=== PATIENT | male | born 1950 | race Caucasian/White ===

== ENCOUNTER 2017-07-31 06:59 | Day surgery (SDC) | payer MEDICARE, MEDICAID ==
[2017-07-31] MEDS ORDERED: FENTANYL PF 100MCG/2ML VIAL IV ONE (07:00)
[2017-07-31] MEDS ORDERED: DEXAMETHASONE PRESERVATIVE FREE 10MG/ML VIAL IV ONE (07:00)
[2017-07-31] MEDS ORDERED: MIDAZOLAM HCL 2MG/2ML VIAL IV ONE (07:00)
[2017-07-31] MEDS ORDERED: PROPOFOL 10 MG/ML VIAL IV ONE (07:00)
[2017-07-31] MEDS ORDERED: LIDOCAINE 2% MDV (20MG/ML) 20ML VIAL IV ONE (07:00)
[2017-07-31] MEDS ORDERED: BUPIVACAINE 0.75% W/EPI MPF 30ML VIAL IVP ONE (07:00)
[2017-07-31] MEDS ORDERED: LIDOCAINE 1% W/EPI 1:200,000 MPF 30ML SQ ONE (07:00)
--- NOTE | 2017-07-31 19:01 | Operative Note - [place] ---
DATE OF SURGERY: 07/31/17 PREOPERATIVE DIAGNOSIS: CERVICAL SPONDYLOSIS WITHOUT MYELOPATHY, ICD-10 CODE = M47.812. OPERATION: RADIOFREQUENCY RHIZOTOMY BILATERAL CERVICAL FACETS 2-3, 3-4, AND 4-5. SURGEON: VALENTIN BRITO D.O. ANESTHESIA: LOCAL SEDATION. ANESTHESIA PROVIDER: CHASE RAMIREZ CRNA. INDICATION: This patient presents with pain, which is head and neck. Diagnostics show significant endplate spurring and osteophytic formation, cervical spine. Facet series 75-90% pain control. Due to the failure of therapy and success of the facet series, the patient presents today for rhizotomy for more long-term relief. PROCEDURE: Intravenous line, vital sign monitoring, IV sedation, prepped, draped, sterile technique. Patient position prone. Sterile prep. Sterile technique. Under imaging, cervical facets at 2-3, 3-4, and 4-5 were identified and marked bilaterally. Skin infiltrated. A 22-gauge rhizotomy cannula positioned. Stimulation trials conducted. Rhizotomy burn performed. Local with anti-inflammatory into the sites. Topical antibiotics. Sterile dressing applied. We will monitor and evaluate. cc: Celine Pimentel Dr. JOB NUMBER: [id number] [facility]
== END 2017-07-31 09:15 | disposition home or self-care (01) ==
LOC: SUR 06:59
PROVIDERS: ATTEND Pain Medicine Interventional Pain Medicine
DX: M47.812 Spondylosis without myelopathy or radiculopathy, cervical region (principal)
CPT/HCPCS: J3490

== ENCOUNTER 2017-11-08 08:11 | Day surgery (SDC) | payer MEDICARE, MEDICAID ==
[2017-11-08] MEDS ORDERED: PROPOFOL 10 MG/ML VIAL IV ONE (08:12)
[2017-11-08] MEDS ORDERED: LIDOCAINE 2% MDV (20MG/ML) 20ML VIAL IV ONE (08:12)
--- NOTE | 2017-11-11 13:30 | Operative Note ---
DATE OF SURGERY: 11/08/2017 SURGEON: Cecilia Coyle MD OPERATION: ESOPHAGOGASTRODUODENOSCOPY. INDICATIONS: This is a 67-year-old male with history of intermittent episodes of dysphagia who presented for esophagogastroduodenoscopy. POSTOPERATIVE DIAGNOSES: 1. Normal esophagus with no specific strictures status post Ham dilatation to 60-Ni[place] and biopsies to rule out eosinophilic esophagitis. 2. Mild gastritis. 3. Duodenitis. ANESTHESIA: Sedation is per Anesthesia. Pulse oximetry was monitored throughout the procedure to maintain O2 saturation of 90% or greater. Supplemental oxygen was administered via nasal cannula. Cardiac and vital signs were monitored throughout the duration of the procedure, and they were stable. The procedure of esophagogastroduodenoscopy and risks and benefits of the procedure, including the risk of bleeding and perforation, among others, were explained to the patient who voiced understanding and agreed to have the procedure done. Physical examination was performed, and the patient was found stable for sedation. PROCEDURE: The patient was placed in the left lateral position. Sedation was initiated. A plastic bite block was inserted into the oral cavity. The Olympus [id number] gastroscope was introduced into the oral cavity and advanced to the proximal esophagus without difficulty. The esophageal mucosa was carefully examined upon introduction of the gastroscope. The proximal, mid, and distal esophageal mucosa appeared normal with no strictures or any other lesions noted. The gastroscope was then advanced into the stomach, and surveillance of the stomach revealed mild erythema along the gastric body and antrum but no ulcers were noted. The gastroscope was then advanced to the descending duodenum without difficulty. In the duodenal bulb there was thickening of the duodenal mucosa with erythema but no ulcer or any mass lesion noted. The descending duodenum mucosa appeared normal. The gastroscope was then withdrawn into the stomach and retroflexion was performed. There were no other lesions noted. Multiple duodenal and gastric and esophageal biopsies were obtained. The patient remained with stable vital signs. Ham dilator size 60-Niuean was passed into the stomach with minimal resistance. The Ham dilator was then withdrawn and the procedure was terminated. The patient tolerated the procedure well without any immediate complications. He remained with stable vital signs and was transferred to the recovery room. RECOMMENDATIONS: 1. The patient is to be on proton pump inhibitors. 2. Follow up on the biopsies. 3. I will see him back in the office as needed. Thank you for allowing me to participate in the care of your patient. CC: LUIS Pimentel
== END 2017-11-08 09:25 | disposition home or self-care (01) ==
LOC: HOP 08:11
PROVIDERS: ATTEND Internal Medicine Gastroenterology
DX: R13.10 Dysphagia, unspecified (principal); K29.50 Unspecified chronic gastritis without bleeding; B96.81 Helicobacter pylori [H. pylori] as the cause of diseases classified elsewhere; K29.80 Duodenitis without bleeding

== ENCOUNTER 2017-12-26 05:59 | Emergency (ER) | payer BC, MEDICARE ==
[2017-12-26] MEDS ORDERED: KETOROLAC 60 MG/2 ML VIAL IM STA (06:19)
--- NOTE | 2017-12-26 06:25 | Emergency Department Record ---
History of Present Illness - General Chief Complaint: Back Pain/Injury Stated Complaint: BACK PAIN Time Seen by Provider: 12/26/17 06:15 Source: Patient Mode of Arrival: Ambulatory Limitations: No limitations - History of Present Illness Initial Comments: 67 yo male presents to ED for evaluation of low back pain symptoms that woke him up this morning 2 hours ago. Patient reports that he has [place] 10 mg however his pain mediation is in his van at work. Patient denies new injury, reports chronic low back pain symptoms that he sees Dr. Landeros for. 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 Patient denies fevers, chills, or recent illness. MD Complaint: Back pain Onset/Timin -: Hour(s) Similar Symptoms Previously: Yes Place: Home Radiation: None Severity scale (1-10): 10 Consistency: Constant Improves With: None Worsens With: None Associated Symptoms: Denies other symptoms Treatments Prior to Arrival: NSAIDS - Related Data Allergies Allergy/AdvReac Type Severity Reaction Status Date / Time No Known Drug Allergies Allergy Unverified 08/08/17 09:17 Travel Screening - Travel/Exposure Within Last 30 Days Have you traveled within the last 30 days?: No - Travel/Exposure Within Last Year Have you traveled outside the [place] in the last year?: No - Additonal Travel Details Have you been exposed to anyone with a communicable illness?: No - Travel Symptoms Symptom Screening: None Review of Systems Constitutional: Denies: Chills, Fever, Malaise, Night sweats Eyes: Denies: Eye discharge, Eye pain ENT: Denies: Congestion, Ear pain, Epistaxis Respiratory: Denies: Cough, Dyspnea Cardiovascular: Denies: Chest pain, Dyspnea on exertion Endocrine: Denies: Fatigue, Heat or cold intolerance Gastrointestinal: Denies: Abdominal pain, Nausea, Vomiting Genitourinary: Denies: Incontinence, Retention Musculoskeletal: Reports: Back pain. Denies: Arthralgia, Gout, Joint swelling Skin: Denies: Bruising, Change in color Neurological: Denies: Abnormal gait, Confusion, Headache, Seizure Psychiatric: Denies: Anxiety Hematological/Lymphatic: Denies: Anemia, Blood Clots Past Medical History - SOCIAL HISTORY Smoking Status: Current every day smoker Alcohol Use: None Drug Use: None - RESPIRATORY Hx Respiratory Disorders: Yes Hx Bronchitis: Yes Hx COPD: Yes (mild no inhalers) Hx Pneumonia: Yes - CARDIOVASCULAR Hx Cardio Disorders: No - NEURO Hx Neuro Disorders: Yes Hx Headaches: Yes (from neck) - GI Hx GI Disorders: No - Hx Genitourinary Disorders: No - ENDOCRINE Hx Endocrine Disorders: No - MUSCULOSKELETAL Hx Musculoskeletal Disorders: Yes Hx Arthritis: Yes - PSYCH Hx Psych Problems: No - HEMATOLOGY/ONCOLOGY Hx Hematology/Oncology Disorders: Yes Hx Cancer: Yes (Skin) Family Medical History Any Significant Family History?: Yes Hx Cancer: Father, Mother Physical Exam - General General Appearance: Alert, Oriented x3, Cooperative, No acute distress, Other ( calm, well appearing) Limitations: No limitations - Head Head exam: Atraumatic, Normocephalic, Normal inspection Head exam detail: negative: Abrasion, Contusion, Cortez's sign, General tenderness, Hematoma, Laceration - Eye Eye exam: Normal appearance. negative: Conjunctival injection, Periorbital swelling, Periorbital tenderness, Scleral icterus - ENT Ear exam: negative: Auricular hematoma, Auricular trauma Nasal Exam: negative: Active bleeding, Discharge, Dried blood, Foreign body Mouth exam: negative: Drooling, Laceration, Muffled voice, Tongue elevation - Neck Neck exam: Normal inspection. negative: Meningismus, Tenderness - Respiratory Respiratory exam: Normal lung sounds bilaterally. negative: Rales, Respiratory distress, Rhonchi, Stridor - Cardiovascular Cardiovascular Exam: Regular rate, Normal rhythm, Normal heart sounds - GI/Abdominal GI/Abdominal exam: Soft. negative: Rebound, Rigid, Tenderness - Rectal Rectal exam: Deferred - exam: Deferred - Extremities Extremities exam: Normal inspection. negative: Calf tenderness, Pedal edema, Tenderness - Back Back exam: Reports: Other (Sits up easily without pain symptoms). Denies: CVA tenderness (R), CVA tenderness (L) - Neurological Neurological exam: Alert, Normal gait, Oriented X3 - Psychiatric Psychiatric exam: Normal affect, Normal mood - Skin Skin exam: Normal color. negative: Abrasion Type of lesion: negative: abrasion Course Vital Signs 12/26/17 06:04 Temperature 97.9 F Pulse Rate 50 L Respiratory 20 Rate Blood Pressure 149/83 Pulse Ox 98 - Reevaluation(s) Reevaluation #1: 12/26/17 06:55 Patient was reassessed, reports improvement in his chronic back pain symptoms. Patient was encouraged to take his [place] this morning as well. Patient denies lower extremity weakness, numbness, tingling, numbness over the groin region. No evidence for acute spinal cord compression syndrome. Patient appears stable for discharge at this time. Disposition Disposition: Discharge Clinical Impression: Chronic back pain Qualifiers: Back pain location: low back pain Back pain laterality: bilateral Sciatica presence: without sciatica Qualified Code(s): M54.5 - Low back pain Disposition: Home, Self-Care Condition: (2) Stable Instructions: Low Back Strain (ED) Additional Instructions: Return to ED if your symptoms worsen or if you have any concerns. [place] as directed. Follow-up with your family doctor in 3-5 days as directed. Forms: Patient Portal Access Time of Disposition: 06:25 Quality - Quality Measures Quality Measures: N/A - Blood Pressure Screening Does Patient Have Any of the Following: No Blood Pressure Classification: Pre-Hypertensive BP Reading Systolic Measurement: 149 Diastolic Measurement: 83 Screening for High Blood Pressure: < Pre-Hypertensive BP, F/U Documented > [ [id number]] Pre-Hypertensive Follow-up Interventions: Referral to alternative/primary care provider.
== END 2017-12-26 06:59 | disposition home or self-care (01) ==
LOC: ER 05:59
DX: M54.5 Low back pain (principal); J44.9 Chronic obstructive pulmonary disease, unspecified; F17.210 Nicotine dependence, cigarettes, uncomplicated
CPT/HCPCS: 96372; 99283; J1885

== ENCOUNTER 2018-10-16 07:59 | Day surgery (SDC) | payer BC ==
[2018-10-16] MEDS ORDERED: FENTANYL PF 100MCG/2ML VIAL IV ONE (08:00)
[2018-10-16] MEDS ORDERED: LIDOCAINE 2% MDV (20MG/ML) 20ML VIAL IV ONE (08:00)
[2018-10-16] MEDS ORDERED: MIDAZOLAM HCL 2MG/2ML VIAL IV ONE (08:00)
[2018-10-16] MEDS ORDERED: PROPOFOL 10 MG/ML VIAL IV ONE (08:00)
[2018-10-16] MEDS ORDERED: SEVOFLURANE 250 ML INH ONE (08:00)
--- NOTE | 2018-10-17 08:41 | Operative Note ---
DATE OF SURGERY: 10/16/2018 Surgeon: Brett Alan DO PREOPERATIVE DIAGNOSIS: Carpal tunnel syndrome of the right wrist. POSTOPERATIVE DIAGNOSIS: Carpal tunnel syndrome of the right wrist. OPERATION: Decompression right median nerve of the wrist using 3.5 loop magnification. DESCRIPTION OF PROCEDURE: This 68-year-old male was taken to the operating room and placed in the supine position on the operating room table. A [place] block anesthesia was administered, and the right upper extremity was elevated. It was prepped with Hibiclens and draped in the usual sterile fashion. A palmar incision was utilized from the level of the base of the webspace of the thumb to the flexor crease of the wrist. Dissection was carried down through the skin and subcutaneous tissue. Hemostasis obtained with the electrocautery. The palmar fascia was divided in line with the skin incision. This exposed the flexor retinaculum which was punctured and then split to its proximal margin. With the contents of the carpal tunnel under direct vision, the transverse carpal ligament was transected along its ulnar border to expose the entire median nerve under the transverse carpal ligament. The recurrent motor branch of the median nerve was identified and found to be normal. The median nerve itself appeared to be normal. No significant hyperemia or hourglass deformity was present. The wound was irrigated with lactated Ringer's solution and hemostasis obtained with the electrocautery. The wound closed with interrupted 6-0 nylon suture. Sterile dressings were applied with plaster of splint immobilization with the wrist in slight dorsiflexion and the thumb in an adducted position. The patient was transferred to the recovery room in satisfactory condition. CC: MARITA Ocampo
== END 2018-10-16 10:50 | disposition home or self-care (01) ==
LOC: SUR 07:59
PROVIDERS: ATTEND Orthopaedic Surgery
DX: G56.01 Carpal tunnel syndrome, right upper limb (principal); J44.9 Chronic obstructive pulmonary disease, unspecified; F17.210 Nicotine dependence, cigarettes, uncomplicated
CPT/HCPCS: 64721; 01810; J3010